=== PATIENT | male | born 1985 | race Caucasian/White ===

== ENCOUNTER 2020-02-06 16:05 | Emergency (ER) | payer BC ==
[2020-02-06 16:11] VITALS: BP 150/83; PULSE 91; RESP 20; TEMP 98
--- NOTE | 2020-02-06 16:44 | ED ---
Lower Extremity Injury HPI - General Chief Complaint: Extremity Injury, Lower Stated Complaint: Foot injury Time Seen by Provider: 02/06/20 16:14 Source: patient Mode of arrival: wheelchair Limitations: no limitations - History of Present Illness Initial Comments: Patient is a 34-year-old male presenting to emergency Department with complaints of right foot pain after injury last night. Patient states he was listening to music and rocking back and forth with his feet when his right foot twisted over. Patient states the pain dropped down to his knees. He is describing pain in the lateral aspect of his right foot. He denies any previous injuries or surgeries to this foot. He denies any pain of the right ankle or right lower leg. He denies any other complaints at this time. - Related Data Home Medications Medication Instructions Recorded Confirmed No Known Home Medications 02/06/20 02/06/20 Allergies Allergy/AdvReac Type Severity Reaction Status Date / Time No Known Allergies Allergy Verified 02/06/20 16:11 Review of Systems ROS Statement: Those systems with pertinent positive or pertinent negative responses have been documented in the HPI. ROS Other: All systems not noted in ROS Statement are negative. Past Medical History Additional Past Medical History / Comment(s): gout, autism History of Any Multi-Drug Resistant Organisms: None Reported Past Surgical History: No Surgical Hx Reported Past Psychological History: No Psychological Hx Reported Smoking Status: Never smoker Past Alcohol Use History: None Reported Past Drug Use History: None Reported General Exam - General Exam Comments Initial Comments: GENERAL: Patient is well-developed and well-nourished. Patient is nontoxic and in no acute distress. HEAD: Atraumatic, normocephalic. EYES: Pupils equal round and reactive to light, extraocular movements intact, sclera anicteric, conjunctiva are normal. Eyelids were unremarkable. ENT: TMs normal, nares patent, oropharynx clear without exudates. Moist mucous membranes. NECK: Normal range of motion, supple without lymphadenopathy or JVD. LUNGS: Unlabored respirations. Breath sounds clear to auscultation bilaterally and equal. No wheezes rales or rhonchi. HEART: Regular rate and rhythm without murmurs, rubs or gallops. ABDOMEN: Soft, nontender, normoactive bowel sounds. No guarding, no rebound. No masses appreciated. : Deferred MUSCULOSKELETAL: Patient has mild pain to palpation of the right lateral foot, distal, in between the fourth and fifth metatarsal. There is no obvious swelling, bruising or deformity noted. He is neurovascular intact. There is no pain in his right ankle right lower leg. He has full range of motion of the right ankle and right foot. NEUROLOGICAL: Patient is alert and oriented x 3. Motor and sensory are also intact. Symmetrical smile. Normal speech. PSYCH: Normal mood, normal affect. SKIN: Warm, Dry, normal turgor, no rashes or lesions noted. Limitations: no limitations Course Vital Signs 02/06/20 16:09 Temperature 98.0 F Pulse Rate 91 Respiratory 20 Rate Blood Pressure 150/83 O2 Sat by Pulse 99 Oximetry Procedures - Orthopedic Splinting/Casting Injury #1 Side: right Lower Extremity Injury Location: short leg, foot Lower Extremity Immobilizer: posterior splint, Ruiz wrap, synthetic pre-padded splint Medical Decision Making - Medical Decision Making Patient is a 34-year-old male here for right foot pain after he twisted last night. No previous injuries or surgeries. X-rays the right foot show a and acute nondisplaced Alvarado type fracture the base of the fifth metatarsal. Patient was placed in a posterior splint and we discussed nonweight bearing. Patient will follow up with orthopedic. He may take Tylenol or Motrin for discomfort. Patient is in agreement with this plan of care. He is stable for discharge. Case discussed with Dr. Yancey. Disposition Clinical Impression: Fracture of fifth metatarsal bone of right foot Disposition: HOME SELF-CARE Condition: Stable Instructions (If sedation given, give patient instructions): Foot Fracture in Adults (ED) Additional Instructions: Please return to the Emergency Department if symptoms worsen or any other concerns. Keep splint in place until follow-up with orthopedics. No weightbearing on the right foot as discussed. Take Tylenol or Motrin for discomfort, elevation and ice on the foot. Is patient prescribed a controlled substance at d/c from ED?: No Referrals: None,Stated [Primary Care Provider] - 1-2 days Faisal Castro MD [STAFF PHYSICIAN] - 1-2 days
--- NOTE | 2020-02-06 16:49 | XR ---
EXAMINATION TYPE: XR foot complete RT DATE OF EXAM: 02/06/2020 CLINICAL HISTORY: Twisting injury with pain. TECHNIQUE: Frontal, lateral, and oblique images of the right foot are obtained. COMPARISON: None FINDINGS: There is age-indeterminate but suspected acute minimally displaced transverse fracture thr ough the base of the fifth metatarsal. The joint spaces in the right foot appear within normal limit s. The overlying soft tissue appears unremarkable. IMPRESSION: There is probable acute nondisplaced Alvarado type fracture base of fifth metatarsal. Corre late clinically with point tenderness.
== END 2020-02-06 17:45 | disposition home or self-care (01) ==
LOC: EC 16:05
DX: S92.354A Nondisplaced fracture of fifth metatarsal bone, right foot, initial encounter for closed fracture (principal); X50.1XXA Overexertion from prolonged static or awkward postures, initial encounter; F84.0 Autistic disorder
CPT/HCPCS: 29515; 99283